=== PATIENT | female | born 1940 | race Caucasian/White ===

== ENCOUNTER 2019-11-20 06:12 | Inpatient (IN) | payer MEDICARE ==
[2019-11-12 12:46] LABS: BASOPHILS # (AUTO) 0.1 X10'3 (0-0.2); BASOPHILS % (AUTO) 0.6 % (0-1); EOSINOPHILS # (AUTO) 0.2 X10'3 (0-0.9); EOSINOPHILS % (AUTO) 2.1 % (0-6); LYMPHOCYTES # (AUTO) 1.9 X10'3 (1.1-4.8); LYMPHOCYTES % (AUTO) 20.2 % (21-51); MEAN CORPUSCULAR HGB CONC 31.4 g/dL (33.0-36.5); MEAN CORPUSCULAR VOLUME 76.6 FL (78-98); MEAN PLATELET VOLUME 7.9 FL (7.4-10.4); MONOCYTES # (AUTO) 0.6 X10'3 (0-0.9); MONOCYTES % (AUTO) 6.7 % (2-12); NEUTROPHILS # (AUTO) 6.6 X10'3 (1.8-7.7); NEUTROPHILS % (AUTO) 70.4 % (42-75); PRE OP HEMATOCRIT 33.2 % (35.0-45.0); PRE OP PLATELET COUNT 269 X10'3 (140-440); RED BLOOD COUNT 4.33 X10'6 (4.20-5.60); RED CELL DISTRIBUTION WIDTH 17.5 % (11.5-14.5)
[2019-11-12 12:47] LABS: PRE OP HEMOGLOBIN 10.4 g/dL (12.0-16.0)
[2019-11-12 14:24] LABS: ALBUMIN 4.1 G/DL (3.4-5.0); ALBUMIN/GLOBULIN RATIO 1.1 (1.1-1.5); ALKALINE PHOSPHATASE 143 IU/L (46-116); BLOOD UREA NITROGEN 20 MG/DL (7-18); BUN/CREATININE RATIO 20.6 (6.6-38.0); CALCIUM 9.3 MG/DL (8.5-10.1); CHLORIDE 104 MMOL/L (99-107); CREATININE 0.97 MG/DL (0.40-0.90); PRE OP ALT 21 U/L (30-65); PRE OP ANION GAP 11 (8-16); PRE OP AST 23 U/L (10-37); PRE OP BILIRUB, TOTAL 0.5 MG/DL (0.0-1.0); PRE OP GLUCOSE 99 MG/DL (70-104); PRE OP POTASSIUM 4.6 MMOL/L (3.4-5.1); PRE OP SODIUM 139 MMOL/L (135-145); TOTAL CARBON DIOXIDE 24.2 MMOL/L (24-32); TOTAL PROTEIN 7.7 G/DL (6.4-8.2); eGFR 56 ML/MIN
[2019-11-12 16:01] LABS: PRE OP PROTIME 10.8 SECONDS (9.0-12.0)
[2019-11-20] VITALS (19 sets, daily range): BP systolic 91–168; BP diastolic 44–81
[~2019-11-20] VITALS: Ht 157.5 cm; Wt 61.0 kg
[~2019-11-20 06:12] MED LIST: APIX5TAB3 PO; ATOR20TA PO; DOCU100C41 PO; DOCUMENT DATE & TIME OF BETA-BLOCKER PO ONE; ENAL5TAB PO; HYDR-4353 PO; LAN0.125T PO; METO-411 PO; OMEP20TA5 PO; TIZA4CAP PO; TRAZ-256 PO; VANCOMYCIN INJ 1000 MG in NORMAL SALINE 250ml IV.SOLN IV ONE; cefazolin/dext.iso 2gm/100ml 100 ML IV ONE; famotidine 10mg tablet PO ONE; ringers solution, lacted 1,000 ML IV SCH; tranexamic acid inj. 1,000 MG in normal saline 100 ML IV ONE
[2019-11-20] MEDS ORDERED: LIDOcaine 1% (10mg/ml) 2ml vial ONE (06:27)
[2019-11-20] MEDS ORDERED: morphine 10mg/ml inj. ONE (07:21)
[2019-11-20] MEDS ORDERED: ketorolac trometh. 30mg/ml inj. ONE (07:21)
[2019-11-20] MEDS ORDERED: epiNEPHrine 1 mg/ml inj ONE (07:21)
[2019-11-20] MEDS ORDERED: vancomycin 1,000mg inj ONE (07:22)
[2019-11-20] MEDS ORDERED: ceFAZolin 1000mg inj ONE (07:22)
[2019-11-20] MEDS ORDERED: ROPIVAcaine 0.5% (5mg/ml) 30ml vial ONE ×2 (07:22→09:11)
[2019-11-20] MEDS ORDERED: fentaNYL /PF 50mcg/ml 5ml ampule ONE ×2 (07:53→09:24)
[2019-11-20] MEDS ORDERED: midazolam 2 mg/2 ml injection ONE (07:53)
[2019-11-20] MEDS ORDERED: propofol inj 20 ML IV ONE (07:54)
[2019-11-20] MEDS ORDERED: ondansetron/PF 4mg/2ml inj ONE (07:54)
[2019-11-20] MEDS ORDERED: dexamethasone sod phosphate 4mg/ml inj. ONE (07:54)
[2019-11-20] MEDS ORDERED: LIDOcaine 2% (20mg/ml) 5ml vial ONE (07:54)
[2019-11-20] MEDS ORDERED: ringers solution, lacted 1,000 ML IV SCH (07:56)
[2019-11-20] MEDS ORDERED: fentaNYL/PF 50MCG/1 ML 2ML syringe IV PRN ×2 (08:00)
[2019-11-20] MEDS ORDERED: ondansetron/PF 4mg/2ml inj IV PRN ×2 (08:00→10:15)
[2019-11-20] MEDS ORDERED: morphine 4 MG/ML inj SYRINge IV PRN ×2 (08:00)
[2019-11-20] MEDS ORDERED: labetalol 20mg/4ml (5mg/ml) syringe IV PRN (08:00)
[2019-11-20] MEDS ORDERED: sevoflurane 250ml liquid IH ONE (08:00)
[2019-11-20] MEDS ORDERED: hydrALAZINE 20mg/ml inj. IV PRN (08:00)
[2019-11-20] MEDS ORDERED: ROPIVAcaine 0.2% (10 MG/5 ML) BOLUS INJECTION ADDCANAL PRN (08:10)
[2019-11-20] MEDS ORDERED: Thrombin (Bovine) 5,000 unit vial TP ONE (08:37)
[2019-11-20] MEDS ORDERED: calcium chloride 100 MG/1 ML inj IV ONE (08:37)
[2019-11-20] MEDS ORDERED: labetalol 20mg/4ml (5mg/ml) syringe IV ONE (10:13)
[2019-11-20] MEDS ORDERED: hydrALAZINE 20mg/ml inj. IV ONE (10:13)
[2019-11-20] MEDS ORDERED: acetaminophen 325mg tablet PO PRN (10:15)
[2019-11-20] MEDS ORDERED: HYDROmorphone inj. 0.5 MG/0.5 ML DISP.SYRIN IV PRN (10:15)
[2019-11-20] MEDS ORDERED: diphenhydrAMINE 25mg capsule PO PRN ×2 (10:15)
[2019-11-20] MEDS ORDERED: bisacodyl 10mg suppository rectal RC PRN (10:15)
[2019-11-20] MEDS ORDERED: magnesium hydroxide 30ml (MOM) UD suspension PO PRN (10:15)
[2019-11-20] MEDS ORDERED: HYDROmorphone 1 mg/ml syringe IV PRN (10:15)
--- NOTE | 2019-11-20 11:00 | NUR ---
Received from OR via BED , accompanied by Anesthesiologist DR BARNES and report given by Anesthesiolgist. PATIENT WAKING UP, DENIES PAIN, V/S WNL, NEUROVASCULAR CHECKS INTACT, 18G PIV RUE , ANGELA DRESSING TO LEFT KNEE CDI W/ COLD POWDER PACK AND ON QUE PUMP AT 4ML/HR , SENSATION T-10.
[2019-11-20] MEDS: ROPIVAcaine 0.2%/PF PUMP/bolus 550 ML ADDCANAL SCH (11:11)
--- NOTE | 2019-11-20 12:10 | NUR ---
PATIENT SLEEPY, NEEDS REORIENTATION AT TIMES, 4/10 PAIN, V/S WNL, NEUROVASCULAR CHECKS INTACT, 20G PIV RUE , ANGELA DRESSING TO LEFT KNEE CDI W/ COLD POWDER PACK AND ON QUE PUMP AT 8ML/HR AND BOLUS GIVEN FOR PAIN , SENSATION RETURNED FULL TO PATIENT. PATIENT TAKEN TO 4021B WITH ALL BELONGINGS AND HOOKED UP TO MONITORS IN ROOM AND REPORT GIVEN TO RN WHO HAS TAKEN OVER PATIENT CARE.
[2019-11-20] MEDS ORDERED: tranexamic acid inj. 1,000 MG in normal saline 100ml IV soln 100 ML IV ONE (13:30)
[2019-11-20] MEDS: gabapentin 300mg capsule PO SCH ×2 (14:37→20:27)
[2019-11-20] MEDS: acetaminophen 325mg tablet PO SCH ×2 (14:37→20:39)
[2019-11-20] MEDS ORDERED: docusate sod 100mg capsule PO PRN (16:10)
[2019-11-20] MEDS ORDERED: HYDROcodone/acetaminophen 10/325mg tab PO PRN (16:10)
[2019-11-20] MEDS ORDERED: tizanidine 4mg tablet PO PRN (16:20)
[2019-11-20] MEDS: ceFAZolin 1GM/D5W- ADD-VANTAGE 50 ML IV SCH (16:25)
[2019-11-20] MEDS: potassium cl 20mEq in 1/2 NS 1,000 ML IV SCH ×2 (17:50→17:53)
--- NOTE | 2019-11-20 18:05 | NUR ---
Report to Jose E ARZOLA
[2019-11-20] MEDS: oxyCODONE IR 5mg (immed. release) tablet PO PRN (18:46)
[2019-11-20] MEDS ORDERED: vancomycin/NS 1 GM ADD-VANTAGE 250 ML IV SCH (20:00)
[2019-11-20] MEDS: apixaban 5mg tablet PO SCH (20:26)
[2019-11-20] MEDS: atorvastatin 20mg tablet PO SCH (20:27)
[2019-11-20] MEDS: traZODone 150mg tablet PO SCH (20:27)
[2019-11-20] MEDS: sennosides 8.6mg tablet PO SCH (20:27)
[2019-11-20] MEDS: metoprolol succinate 25mg (24-HOUR) SR. Tablet PO SCH (20:28)
[2019-11-20] MEDS: oxymetazoline 15 ML nasal spray NS SCH (21:29)
[2019-11-21] MEDS: ceFAZolin 1GM/D5W- ADD-VANTAGE 50 ML IV SCH (00:20)
--- NOTE | 2019-11-21 00:27 | NUR ---
SATS 82 on RA while snoring. placed on 2L oxygen - up t o 96%. held oxy for now since pt sleeping with no sxs pain. onQ at 14 still
[2019-11-21] MEDS: acetaminophen 325mg tablet PO SCH ×4 (01:50→20:27)
--- NOTE | 2019-11-21 02:00 | NUR ---
turned onQ down to 10 while sleeping.
[2019-11-21] MEDS: potassium cl 20mEq in 1/2 NS 1,000 ML IV SCH ×3 (02:14→17:18)
[2019-11-21] MEDS: oxyCODONE IR 5mg (immed. release) tablet PO PRN ×3 (04:54→16:01)
[2019-11-21 06:00] VITALS: BP 140/66
[2019-11-21 06:13] LABS: BASOPHILS % (AUTO) 0.2 % (0-1); EOSINOPHILS % (AUTO) 0.1 % (0-6); HEMATOCRIT 24.5 % (35.0-45.0); HEMOGLOBIN 7.9 g/dl (12.0-16.0); LYMPHOCYTES # (AUTO) 1.3 X10'3 (1.1-4.8); LYMPHOCYTES % (AUTO) 12.3 % (21-51); MEAN CORPUSCULAR HEMOGLOBIN 24.4 PG (27.0-31.0); MEAN CORPUSCULAR HGB CONC 32.4 g/dL (33.0-36.5); MEAN CORPUSCULAR VOLUME 75.4 FL (78-98); MEAN PLATELET VOLUME 7.9 FL (7.4-10.4); MONOCYTES % (AUTO) 9.4 % (2-12); NEUTROPHILS # (AUTO) 8.3 X10'3 (1.8-7.7); PLATELET COUNT 218 X10'3 (140-440); RED BLOOD COUNT 3.25 X10'6 (4.20-5.60); RED CELL DISTRIBUTION WIDTH 17.7 % (11.5-14.5); WHITE BLOOD COUNT 10.6 X10'3 (4.5-11.0)
[2019-11-21 06:40] LABS: ANION GAP 11 (8-16); CHLORIDE 108 MMOL/L (99-107); SODIUM 143 MMOL/L (135-145); TOTAL CARBON DIOXIDE 24.2 MMOL/L (24-32)
[2019-11-21] MEDS ORDERED: enoxaparin 30mg/0.3ml syringe SQ SCH (08:00)
[2019-11-21] MEDS: pantoprazole 40mg Tablet.DR PO SCH (08:17)
[2019-11-21] MEDS: metoprolol succinate 25mg (24-HOUR) SR. Tablet PO SCH ×2 (08:17→20:25)
[2019-11-21] MEDS: gabapentin 300mg capsule PO SCH ×3 (08:17→20:27)
[2019-11-21] MEDS: lisinopril 10 MG tablet PO SCH (08:18)
[2019-11-21] MEDS: apixaban 5mg tablet PO SCH ×2 (08:18→20:26)
[2019-11-21] MEDS: oxymetazoline 15 ML nasal spray NS SCH ×2 (08:27→20:37)
[2019-11-21 09:53] VITALS: BP 130/51
[2019-11-21 13:32] VITALS: BP 164/83
--- NOTE | 2019-11-21 14:15 | NUR ---
PRESSURE ULCER EDUCATION: DEFINITION: A pressure ulcer is an area of skin that breaks down when you stay in one position too long. The constant pressure against the skin reduces the blood flow to that area and the affected tissue dies. CAUSES: "Being bedridden or in a wheelchair "Fragile skin "Having a chronic condition, such as diabetes or vascular disease "Inability to move certain parts of your body without assistance "Older age "Incontinence of urine or stool SYMPTOMS: "A reddened area that DOES NOT turn white when pressed on - this can be the beginning of a pressure ulcer "A blister, deep sore or a crater - these can be advanced pressure ulcers FIRST AID: "Relieve the pressure on this area "Keep the area clean and dry "Call your primary doctor if you see any of the above symptoms "DO NOT massage the area "DO NOT use a donut shaped or ring shaped pillow- these actually interfere with the blood flow and cause complications PREVENTION: "Check for pressure ulcers everyday "Change position at least every two hours to relieve pressure "Use items that help relieve pressure- pillows, sheepskin, foam padding, and powders. "Keep skin clean and dry "Eat healthy well balanced meals "Exercise daily IF YOU SEE ANY OF THESE SYMPTOMS WHILE IN THE HOSPITAL - TELL YOUR NURSE IMMEDIATELY. IF YOU SEE ANY OF THESE SYMPTOMS WHILE AT HOME OR HAVE ANY QUESTIONS OR CONCERNS ABOUT PRESSURE ULCERS - CALL YOUR PRIMARY DOCTOR IMMEDIATELY. Addendum: 11/21/19 at 1416 by Jocelyn Moss RN Amended: Links added.
--- NOTE | 2019-11-21 14:21 | NUR ---
Joint replacement consult: Pt seen by RD for written/verbal high protein ed. RD reviewed high protein needs for wound healing, immune strength, high protein foods, and protein supplementation options. RD contact information provided in case of further questions. Pt agrees to katherin steele enlive at breakfasts since drinks at home; notified. Pending verification prior to sending on trays. Addendum: 11/21/19 at [address] Amended: Links added.
--- NOTE | 2019-11-21 18:34 | NUR ---
Problems reprioritized. Patient report given, questions answered & plan of care reviewed with Zhang ARZOLA.
[2019-11-21] MEDS: celeCOXIB 100mg capsule PO SCH (20:26)
[2019-11-21] MEDS: traZODone 150mg tablet PO SCH (20:27)
[2019-11-21] MEDS: atorvastatin 20mg tablet PO SCH (20:27)
[2019-11-21] MEDS: ROPIVAcaine 0.2%/PF PUMP/bolus 550 ML ADDCANAL SCH (20:33)
[2019-11-21] MEDS: sennosides 8.6mg tablet PO SCH (20:35)
[2019-11-22] VITALS (12 sets, daily range): BP systolic 98–158; BP diastolic 38–71
[2019-11-22] MEDS: acetaminophen 325mg tablet PO SCH ×2 (02:00→08:10)
[2019-11-22] MEDS: potassium cl 20mEq in 1/2 NS 1,000 ML IV SCH (02:57)
[2019-11-22] MEDS: pantoprazole 40mg Tablet.DR PO SCH (06:38)
[2019-11-22 06:39] LABS: BASOPHILS % (AUTO) 0.5 % (0-1); EOSINOPHILS # (AUTO) 0.3 X10'3 (0-0.9); EOSINOPHILS % (AUTO) 3.2 % (0-6); HEMATOCRIT 22.6 % (35.0-45.0); HEMOGLOBIN 7.1 g/dl (12.0-16.0); LYMPHOCYTES # (AUTO) 1.6 X10'3 (1.1-4.8); LYMPHOCYTES % (AUTO) 16.2 % (21-51); MEAN CORPUSCULAR HEMOGLOBIN 24.1 PG (27.0-31.0); MEAN CORPUSCULAR HGB CONC 31.5 g/dL (33.0-36.5); MEAN CORPUSCULAR VOLUME 76.4 FL (78-98); MONOCYTES # (AUTO) 0.9 X10'3 (0-0.9); MONOCYTES % (AUTO) 9.7 % (2-12); NEUTROPHILS # (AUTO) 6.9 X10'3 (1.8-7.7); NEUTROPHILS % (AUTO) 70.4 % (42-75); PLATELET COUNT 172 X10'3 (140-440); RED BLOOD COUNT 2.95 X10'6 (4.20-5.60); WHITE BLOOD COUNT 9.8 X10'3 (4.5-11.0)
[2019-11-22] MEDS: oxyCODONE IR 5mg (immed. release) tablet PO PRN (06:39)
[2019-11-22] MEDS ORDERED: lactose-reduced food (Ensure Enlive) - 237ml bottle PO SCH (07:30)
[2019-11-22] MEDS ORDERED: digoxin 125mcg (0.125mg) tablet PO SCH (08:00)
[2019-11-22] MEDS: apixaban 5mg tablet PO SCH ×2 (08:10→20:08)
[2019-11-22] MEDS: gabapentin 300mg capsule PO SCH ×3 (08:10→20:08)
[2019-11-22] MEDS: lisinopril 10 MG tablet PO SCH (08:11)
[2019-11-22] MEDS: celeCOXIB 100mg capsule PO SCH ×2 (08:11→20:08)
[2019-11-22] MEDS: metoprolol succinate 25mg (24-HOUR) SR. Tablet PO SCH ×2 (08:11→20:08)
[2019-11-22] MEDS: oxymetazoline 15 ML nasal spray NS SCH ×2 (08:12→20:08)
[2019-11-22] MEDS ORDERED: acetaminophen 325mg tablet PO PRN (10:15)
--- NOTE | 2019-11-22 18:29 | NUR ---
Problems reprioritized. Patient report given, questions answered & plan of care reviewed with Bing ARZOLA .
--- NOTE | 2019-11-22 18:34 | NUR ---
Patient in room ORTHO 4021. I have received report from Radha ARZOLA and had the opportunity to ask questions and assume patient care.
[2019-11-22] MEDS: atorvastatin 20mg tablet PO SCH (20:08)
[2019-11-22] MEDS: traZODone 150mg tablet PO SCH (20:08)
[2019-11-22] MEDS: sennosides 8.6mg tablet PO SCH (20:08)
--- NOTE | 2019-11-22 22:05 | NUR ---
2100, CPM NOT PLACED ON PATIENT TONIGHT. DID NOT WORK WITH PT TODAY AND WAS NOT SET UP WITH HER CPM. WILL PASS ON TO NEHEMIAH HARMON IN THE AM
[2019-11-23] MEDS: oxyCODONE IR 5mg (immed. release) tablet PO PRN ×2 (02:10→08:44)
[2019-11-23 06:00] VITALS: BP 159/70
--- NOTE | 2019-11-23 06:12 | NUR ---
Problems reprioritized. Patient report given, questions answered & plan of care reviewed with Umm ARZOLA.
--- NOTE | 2019-11-23 06:25 | NUR ---
Patient in room ORTHO 4021. I have received report from NESS MERCADO and had the opportunity to ask questions and assume patient care.
[2019-11-23 06:51] LABS: BASOPHILS % (AUTO) 0.4 % (0-1); EOSINOPHILS # (AUTO) 0.3 X10'3 (0-0.9); EOSINOPHILS % (AUTO) 2.6 % (0-6); HEMATOCRIT 31.8 % (35.0-45.0); HEMOGLOBIN 10.3 g/dl (12.0-16.0); LYMPHOCYTES # (AUTO) 1.5 X10'3 (1.1-4.8); LYMPHOCYTES % (AUTO) 14.7 % (21-51); MEAN CORPUSCULAR HEMOGLOBIN 25.8 PG (27.0-31.0); MEAN CORPUSCULAR HGB CONC 32.5 g/dL (33.0-36.5); MEAN CORPUSCULAR VOLUME 79.4 FL (78-98); MEAN PLATELET VOLUME 8.2 FL (7.4-10.4); MONOCYTES # (AUTO) 1.1 X10'3 (0-0.9); MONOCYTES % (AUTO) 10.6 % (2-12); NEUTROPHILS # (AUTO) 7.3 X10'3 (1.8-7.7); NEUTROPHILS % (AUTO) 71.7 % (42-75); PLATELET COUNT 157 X10'3 (140-440); RED CELL DISTRIBUTION WIDTH 18.5 % (11.5-14.5); WHITE BLOOD COUNT 10.2 X10'3 (4.5-11.0)
[2019-11-23] MEDS: celeCOXIB 100mg capsule PO SCH (08:31)
[2019-11-23] MEDS: gabapentin 300mg capsule PO SCH (08:31)
[2019-11-23] MEDS: pantoprazole 40mg Tablet.DR PO SCH (08:32)
[2019-11-23] MEDS: apixaban 5mg tablet PO SCH (08:32)
[2019-11-23] MEDS: lisinopril 10 MG tablet PO SCH (08:33)
[2019-11-23] MEDS: metoprolol succinate 25mg (24-HOUR) SR. Tablet PO SCH (08:34)
[2019-11-23] MEDS: oxymetazoline 15 ML nasal spray NS SCH (08:34)
[2019-11-23] MEDS: ROPIVAcaine 0.2%/PF PUMP/bolus 550 ML ADDCANAL SCH (10:31)
[2019-11-23 10:55] VITALS: BP 158/79
--- NOTE | 2019-11-23 11:54 | NUR ---
report called to [facility] to jeanna orantes. all questions answered. awaiting patient bean picker time of 1200.
--- NOTE | 2019-11-23 12:27 | NUR ---
Patient a&o in no apparent acute distress with no complaints. Patient dc'd to [facility] via [facility] in wheelchair accompanied by [facility] [employer] staff. Patient dc'd woth all personal belongings as well as ice pack for left knee, a new bulb on ONQ replaced prior to dc, and radha dressing was CDI.
== END 2019-11-23 12:15 | DRG 470 ==
LOC: PAS IN 06:12 → EDSTATUS 08:30 → ORTHO 4S 12:05
PROVIDERS: ADMIT Orthopaedic Surgery; ATTEND Orthopaedic Surgery
PROC: 8E0Y0CZ Robotic Assisted Procedure of Lower Extremity, Open Approach (ICD-10-PCS; 2019-11-20)
PROC: 3E0T3BZ Introduction of Anesthetic Agent into Peripheral Nerves and Plexi, Percutaneous Approach (ICD-10-PCS; 2019-11-20)
PROC: 30233N1 Transfusion of Nonautologous Red Blood Cells into Peripheral Vein, Percutaneous Approach (ICD-10-PCS; 2019-11-20)
PROC: 0SRD069 Replacement of Left Knee Joint with Oxidized Zirconium on Polyethylene Synthetic Substitute, Cemented, Open Approach (ICD-10-PCS; principal; 2019-11-20 08:00)
DX: M17.12 Unilateral primary osteoarthritis, left knee (principal); D62 Acute posthemorrhagic anemia; I48.91 Unspecified atrial fibrillation; E78.5 Hyperlipidemia, unspecified; K21.9 Gastro-esophageal reflux disease without esophagitis; M21.00 Valgus deformity, not elsewhere classified, unspecified site
CPT/HCPCS: 36415; 80051; 80053; 82948; 85025; 85610; 85730; 86885; 86900; 86901; 86920; 87081; 97110; 97116; 97162; 97530; A4215; A6454; A7000; C1713; C1776; G0378; J0171; J0360; J0690; J1100; J1170; J1885; J2001; J2250; J2270; J2405; J2704; J2795; J3010; J3370; J3480; J3490; J7120; P9016